=== PATIENT | male | born 1980 | race Native Hawaiian/Other Pacific Islander ===

== ENCOUNTER 2022-08-25 21:55 | Emergency (ER) | payer OTHER ==
[~2022-08-25] VITALS: Ht 175.3 cm; Wt 77.1 kg
[2022-08-25 23:49] LABS: PLATELET COUNT 314 K/uL (142-355)
[2022-08-25 23:54] LABS: POTASSIUM 3.7 mmol/L (3.6-5.2)
[2022-08-28 08:40] VITALS: BP 117/83; TEMP 97.2
== END 2022-08-28 08:40 | disposition still patient (30) ==
LOC: ED 21:55
PROVIDERS: Emergency Medicine
DX: R45.851 Suicidal ideations (principal); F33.9 Major depressive disorder, recurrent, unspecified; F15.10 Other stimulant abuse, uncomplicated; Z11.52 Encounter for screening for COVID-19
CPT/HCPCS: 36415; 80053; 80143; 80179; 80307; 80320; 81002; 85027; 87635; 93005; 99285; U0003